=== PATIENT | male | born 1965 | race Caucasian/White ===

== ENCOUNTER 2019-04-14 15:53 | Emergency (ER) | payer MEDICAID ==
[~2019-04-14] VITALS: Ht 170.2 cm; Wt 86.2 kg
[2019-04-14 15:57] VITALS: BP 124/70
--- NOTE | 2019-04-14 16:00 | NUR ---
C/O PAINFUL RASH ON UPPER L CHEST AND L UPPER BACK X 5 DAYS. PT REPORT 8/10 PAIN. PT STATES HE WENT TO A CLINIC TODAY BUT WAS NOT SEEN BY A DR, THAT HE WAS JUST GIVEN A PRESCRIPTION FOR TRIAMCINOLONE HX: NONE RX:NONE
[2019-04-14 16:24] VITALS: BP 124/70
--- NOTE | 2019-04-14 16:25 | NUR ---
Patient discharged with v/s stable. Written and verbal after care instructions given and explained. Patient alert, oriented and verbalized understanding of instructions. Ambulatory with steady gait. All questions addressed prior to discharge. ID band removed. Patient advised to follow up with PMD. Rx of NORCO, PREDNISONE ADNVALTREX given. Patient educated on indication of medication including possible reaction and side effects. Opportunity to ask questions provided and answered.
== END 2019-04-14 16:20 | disposition home or self-care (01) ==
LOC: MED 15:53
DX: B02.9 Zoster without complications (principal); L73.9 Follicular disorder, unspecified
CPT/HCPCS: 99283